=== PATIENT | female | born 2000 | race African-American/Black ===

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

== ENCOUNTER 2019-01-02 11:41 | Emergency (ER) | payer OTHER ==
[~2019-01-02] VITALS: Ht 162.6 cm; Wt 84.8 kg
[~2019-01-02 11:41] MED LIST changes: +SULF1TAB24 PO
[2019-01-02 11:53] VITALS: BP 126/66
--- NOTE | 2019-01-02 12:02 | PHYS DOC ---
Past Medical History Past Medical History: No Pertinent History Past Surgical History: No Surgical History Alcohol Use: None Drug Use: None Adult General Chief Complaint Chief Complaint: WOUND RECHECK/SUTURE REMOVAL HPI HPI Patient is a 18 year old female who presents for wound check for an abscess that was drained 2 days ago. Patient denies any issues with the wound healing. Review of Systems Review of Systems Constitutional: Denies fever or chills [] Musculoskeletal: Denies back pain or joint pain [] Integument: Visit for wound check Neurologic: Denies headache, focal weakness or sensory changes [] All other systems were reviewed and found to be within normal limits, except as documented in this note. Allergies Allergies Allergies Coded Allergies Type Severity Reaction Last Updated Verified No Known Drug Allergies 01/29/15 No Physical Exam Physical Exam Constitutional: Well developed, well nourished, no acute distress, non-toxic appearance. [] Skin: Left inner thigh with an open wound approximately 2 x 0.5 cm with packing and trace cellulitis around the area. The packing was removed. Clean nonstick dressing applied to the area Back: No tenderness, no CVA tenderness. [] Extremities: No tenderness, no cyanosis, no clubbing, ROM intact, no edema. [] Neurologic: Alert and oriented X 3, normal motor function, normal sensory function, no focal deficits noted. [] Psychologic: Affect normal, judgement normal, mood normal. [] Current Patient Data Vital Signs Vital Signs Date Time Temp Pulse Resp B/P (MAP) Pulse Ox O2 Delivery O2 Flow Rate FiO2 01/02/19 11:53 98.0 79 16 126/66 (86) 97 Room Air 98.0 EKG EKG [] Radiology/Procedures Radiology/Procedures [] Course & Med Decision Making Course & Med Decision Making Pertinent Labs and Imaging studies reviewed. (See chart for details) This is a 18-year-old female patient presenting to the ED today for wound check and packing removal for an abscess that was drained 2 days ago. Packing was removed by me, area was covered with nonstick dressing. Patient is on Bactrim which she was encouraged to continue taking until completed. Provided wound care instructions and return precautions. Dragon Disclaimer Dragon Disclaimer This electronic medical record was generated, in whole or in part, using a voice recognition dictation system. Departure Departure Impression: Primary Impression: Visit for wound check Disposition: HOME, SELF-CARE Condition: STABLE Referrals: NO PCP (PCP) Follow-up with your doctor in 1-2 weeks Patient Instructions: Wound Check Additional Instructions: We removed the packing from your wound please keep the area clean and dry, apply dressing as discussed. Continue taking antibiotics until completed. Follow-up with your doctor in 1-2 weeks. Come back to the ED didn't point wound condition worsens or you have new concerning symptoms JIM BROWN APRN January 02, 2019 12:02
== END 2019-01-02 12:12 | disposition home or self-care (01) ==
LOC: ER 11:41
DX: L03.116 Cellulitis of left lower limb (principal); Z48.01 Encounter for change or removal of surgical wound dressing
CPT/HCPCS: 99282

== ENCOUNTER 2019-03-17 11:20 | Emergency (ER) | payer OTHER ==
[~2019-03-17] VITALS: Ht 162.6 cm; Wt 86.2 kg
[2019-03-17 11:25] VITALS: BP 118/70
--- NOTE | 2019-03-17 11:52 | PHYS DOC ---
Past Medical History Past Medical History: No Pertinent History Past Surgical History: No Surgical History Alcohol Use: None Drug Use: None Adult General Chief Complaint Chief Complaint: ABSCESS HPI HPI 18-year-old female presents to ER via POV for complaints of sore on her right upper inner thigh. Patient reports she was seen in December for an abscess with similar presentation. Patient denies drainage at site. Patient denies swelling or pain in distal extremity. She denies injury. LMP 01/02/19. . She denies any vaginal bleeding or discharge, abdominal pain, nausea or vomiting, or pelvic pressure. Patient reports regular appetite denying fever or abdominal pain. Review of Systems Review of Systems Constitutional: Denies fever or chills [] Respiratory: Denies cough or shortness of breath [] Cardiovascular: No additional information not addressed in HPI [] GI: Denies abdominal pain, nausea, vomiting, bloody stools or diarrhea [] : Denies urinary sxs. Denies vaginal bleeding/discharge Musculoskeletal: Denies back pain. Reports pain at sore site rt upper/inner thigh Integument: Denies rash. Reports abscess rt inner/upper thigh with tenderness- denies drainage Neurologic: Denies headache, focal weakness or sensory changes [] Endocrine: Denies polyuria or polydipsia [] All other systems were reviewed and found to be within normal limits, except as documented in this note. Current Medications Current Medications Current Medications Medications (Trade) Dose Ordered Sig/Rosangela Start Time Stop Time Status Last Admin Dose Admin Lidocaine HCl (Xylocaine-Mpf 1% 2ml Vial) 2 ml 1X ONCE 03/17/19 12:00 03/17/19 12:01 DC 03/17/19 12:00 2 ML Allergies Allergies Allergies Coded Allergies Type Severity Reaction Last Updated Verified No Known Drug Allergies 01/29/15 No Physical Exam Physical Exam Constitutional: Well developed, well nourished, no acute distress, non-toxic appearance. [] HENT: Normocephalic, atraumatic, oropharynx moist, nose normal. [] Eyes: Pupils equal, conjunctiva normal, no discharge. [] Neck: Normal range of motion, no tenderness, supple, no stridor. [] Cardiovascular: Heart rate regular 90s during exam Lungs & Thorax: Resp. equal/nonlabored Skin: Warm, dry, no erythema, no rash. [] Back: Full ROM Extremities: No cyanosis, no clubbing, ROM intact, no edema. 2+ dorsalis pedis rt LE. Approx. 2x2 rounded sore on rt upper medial thigh- no erythema/drainage/ecchymosis- tender on palp. Induration surrounding sore with center of fluctuation. Neurologic: Alert and oriented X 3, normal motor function, normal sensory function, no focal deficits noted. [] Psychologic: Affect normal, judgement normal, mood normal. [] Current Patient Data Vital Signs Vital Signs Date Time Temp Pulse Resp B/P (MAP) Pulse Ox O2 Delivery O2 Flow Rate FiO2 03/17/19 11:25 98.4 84 16 118/70 (86) 99 Room Air 98.4 EKG EKG [] Radiology/Procedures Radiology/Procedures [] Course & Med Decision Making Course & Med Decision Making While this provider was in with another pt RN reported pt was seen exiting ER without informing staff. Patient had been agreeable for I&D but left without any procedure or prescriptions. Patient was nontoxic in appearance neurovascular intact to right lower extremity. Patient had stable vital signs and was afeb rile. Dragon Disclaimer Dragon Disclaimer This electronic medical record was generated, in whole or in part, using a voice recognition dictation system. Departure Departure Impression: Primary Impression: Abscess Disposition: 07 AGAINST MEDICAL ADVICE (eloped) Referrals: NO PCP (PCP) NANDINI BELL APRN Mar 17, 2019 11:52
[2019-03-17] MEDS ORDERED: LIDOCAINE 1% PF 2 ML VIAL. INJ ONE (12:00)
== END 2019-03-17 12:30 | disposition home or self-care (01) ==
LOC: ER 11:20
DX: L02.415 Cutaneous abscess of right lower limb (principal)
CPT/HCPCS: 96372; 99283

== ENCOUNTER 2019-04-16 18:51 | Emergency (ER) | payer OTHER ==
[~2019-04-16] VITALS: Ht 162.6 cm; Wt 89.8 kg
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
[2019-04-16 19:44] VITALS: BP 128/60
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
== END 2019-04-16 20:45 | disposition home or self-care (01) ==
LOC: ER 18:51
DX: O9A.312 Physical abuse complicating pregnancy, second trimester (principal); M54.2 Cervicalgia; R10.33 Periumbilical pain; Z3A.15 15 weeks gestation of pregnancy
CPT/HCPCS: 76815; 81025; 99284

== ENCOUNTER 2019-07-29 16:00 | Observation (INO) | payer OTHER ==
[~2019-07-29] VITALS: Ht 162.6 cm; Wt 91.6 kg
[2019-07-29 16:27] LABS: BILIRUBIN,URINE SMALL (NEG); CLARITY,URINE TURBID; COLOR,URINE AMBER; NITRITE,URINE NEGATIVE (NEG); PROTEIN,URINE 100 mg/dL (NEG-TRACE)
[2019-07-29 16:39] LABS: BACTERIA,URINE MANY /HPF (0-FEW); RBC,URINE 0 /HPF (0-2); SQUAMOUS EPITHELIAL CELL,UR MANY /LPF; WBC,URINE TNTC /HPF (0-4)
[2019-07-29] MEDS ORDERED: PANTOPRAZOLE IV PUSH 40 MG VIAL. IVP SCH (17:00)
[2019-07-29] MEDS ORDERED: METOCLOPRAMIDE HCL 10 MG/2 ML VIAL. IVP SCH (17:00)
[2019-07-29 17:11] LABS: BASO % 0 % (0-3); EOS % 0 % (0-3); HEMATOCRIT 34.9 % (36.0-47.0); HEMOGLOBIN 11.4 g/dL (12.0-15.5); LYMPH % 7 % (24-48); MEAN CORPUSCULAR HEMOGLOBIN 26 pg (25-35); MEAN CORPUSCULAR HGB CONC 33 g/dL (31-37); MEAN CORPUSCULAR VOLUME 78 fL (79-100); MONO % 7 % (0-9); NEUT # 12.1 x10^3/uL (1.8-7.7); NEUT % 86 % (31-73); PLATELET COUNT 283 x10^3/uL (140-400); RED BLOOD COUNT 4.48 x10^6/uL (3.50-5.40); RED CELL DISTRIBUTION WIDTH 15.1 % (11.5-14.5); WHITE BLOOD COUNT 14.1 x10^3/uL (4.0-11.0)
[2019-07-29] MEDS: IV RINGERS,LACTATED 1000ML 1,000 ML IV SCH ×2 (17:12→18:00)
[2019-07-29 17:33] LABS: CALCIUM 8.8 mg/dL (8.5-10.1); CREATININE 0.5 mg/dL (0.6-1.0); GFR 192.3; POTASSIUM 3.9 mmol/L (3.5-5.1)
[2019-07-29 17:40] LABS: ALBUMIN 2.8 g/dL (3.4-5.0); ALBUMIN/GLOBULIN RATIO 0.6 (1.0-1.7); TOTAL BILIRUBIN 0.2 mg/dL (0.2-1.0); TOTAL PROTEIN 7.4 g/dL (6.4-8.2)
[2019-07-29] MEDS ORDERED: ONDANSETRON PF 4 MG/2 ML VIAL. IV SCH (18:00)
[2019-07-29 18:34] LABS: % EOS 1 % (0-5); % LYMPHS 3 % (24-48); % MONOS 5 % (0-10); % SEGS 91 % (35-66); PLT ESTIMATE ADEQUATE (ADEQUATE)
[2019-07-29 18:35] LABS: SMUDGE CELLS PRESENT
== END 2019-07-29 20:10 | disposition home or self-care (01) ==
LOC: 3 SO LND 16:00
PROVIDERS: ADMIT Obstetrics & Gynecology; ATTEND Obstetrics & Gynecology
DX: O21.2 Late vomiting of pregnancy (principal); O26.893 Other specified pregnancy related conditions, third trimester; R10.9 Unspecified abdominal pain; Z3A.29 29 weeks gestation of pregnancy
CPT/HCPCS: 36415; 80053; 81001; 85007; 85025; 87086; 96361; 96374; 96375; C9113; G0378; G0379; J2405; J2765; J7120

== ENCOUNTER 2019-09-16 10:40 | Observation (INO) | payer OTHER ==
[~2019-09-16] VITALS: Ht 162.6 cm; Wt 94.8 kg
[2019-09-16 11:33] LABS: BILIRUBIN,URINE NEGATIVE (NEG); CLARITY,URINE CLOUDY; COLOR,URINE YELLOW; NITRITE,URINE NEGATIVE (NEG); PH,URINE 6.5; PROTEIN,URINE NEGATIVE (NEG-TRACE)
[2019-09-16 11:44] LABS: BACTERIA,URINE FEW /HPF (0-FEW); SQUAMOUS EPITHELIAL CELL,UR MANY /LPF; WBC,URINE >40 /HPF (0-4)
== END 2019-09-16 12:35 | disposition home or self-care (01) ==
LOC: 3 SO LND 10:40
PROVIDERS: ADMIT Obstetrics & Gynecology; ATTEND Obstetrics & Gynecology
DX: O62.9 Abnormality of forces of labor, unspecified (principal); Z3A.36 36 weeks gestation of pregnancy
CPT/HCPCS: 81001; 87086; G0378; G0379

== ENCOUNTER 2019-10-02 05:37 | Inpatient (IN) | payer OTHER ==
[~2019-10-02] VITALS: Ht 162.6 cm; Wt 94.8 kg
[2019-10-02] MEDS ORDERED: LIDOCAINE 1% PF 30 ML VIAL. INJ PRN (05:45)
[2019-10-02] MEDS ORDERED: ONDANSETRON PF 4 MG/2 ML VIAL. IV PRN (05:45)
[2019-10-02] MEDS ORDERED: fentaNYL PF VIAL 100 MCG/2 ML VIAL IV PRN ×2 (05:45)
[2019-10-02] MEDS ORDERED: BUTORPHANOL 2 MG/ML VIAL. IV PRN ×2 (05:45)
[2019-10-02] MEDS ORDERED: OXYTOCIN 30 UNIT/500 ML PREMIX 500 ML IV PRN ×3 (05:45→12:30)
[2019-10-02] MEDS ORDERED: TERBUTALINE 1 MG/ML VIAL. SQ PRN (05:45)
[2019-10-02] MEDS ORDERED: diphenhydrAMINE HCL 25 MG CAPSULE PO PRN ×2 (05:45→12:30)
[2019-10-02] MEDS ORDERED: ACETAMINOPHEN 325 MG TABLET. PO PRN ×2 (05:45→12:30)
[2019-10-02] MEDS ORDERED: IBUPROFEN 400 MG TABLET. PO PRN (05:45)
[2019-10-02] MEDS ORDERED: 0.9 % SODIUM CHLORIDE 10 ML DISP.SYRIN. IV PRN ×2 (05:45→12:30)
[2019-10-02] MEDS: IV RINGERS,LACTATED 1000ML 1,000 ML IV SCH ×3 (06:19→22:00)
[2019-10-02 06:45] LABS: BILIRUBIN,URINE SMALL (NEG); CLARITY,URINE CLEAR; COLOR,URINE AMBER; NITRITE,URINE NEGATIVE (NEG); PROTEIN,URINE 30 mg/dL (NEG-TRACE)
[2019-10-02 06:46] LABS: BASO % 0 % (0-3); EOS % 0 % (0-3); HEMATOCRIT 32.3 % (36.0-47.0); HEMOGLOBIN 10.4 g/dL (12.0-15.5); LYMPH # 2.1 x10^3/uL (1.0-4.8); LYMPH % 22 % (24-48); MEAN CORPUSCULAR HEMOGLOBIN 24 pg (25-35); MEAN CORPUSCULAR HGB CONC 32 g/dL (31-37); MEAN CORPUSCULAR VOLUME 74 fL (79-100); MONO # 0.9 x10^3/uL (0.0-1.1); MONO % 10 % (0-9); NEUT # 6.8 x10^3/uL (1.8-7.7); NEUT % 69 % (31-73); PLATELET COUNT 291 x10^3/uL (140-400); RED BLOOD COUNT 4.38 x10^6/uL (3.50-5.40); RED CELL DISTRIBUTION WIDTH 16.1 % (11.5-14.5); WHITE BLOOD COUNT 9.9 x10^3/uL (4.0-11.0)
[2019-10-02] MEDS ORDERED: OXYTOCIN PREMIX 30 UNIT/500 ML NS BAG. IV ONE (07:30)
[2019-10-02 07:32] LABS: BACTERIA,URINE FEW /HPF (0-FEW); RBC,URINE OCC /HPF (0-2); SQUAMOUS EPITHELIAL CELL,UR FEW /LPF
--- NOTE | 2019-10-02 09:19 | PDOC1 ---
OB - History Hx of Present Care: Good Care Ultrasounds: Normal mid trimester US Obstetrical Complications: None Medical Complications: None Past Family/Social History * Past Medical, Surgical, Family and Obstetric Histories reviewed from chart. Blood Type: Unknown Rubella: Immune RPR/VDRL: Negative GBS Status: Negative HBsAG: Negative OB - Chief Complaint & HPI Date of Admission: Date of Admission: Oct 02, 2019 at 05:37 Chief Complaint/History : 3 Para: 2 EGA: 39 Reason for admission: induction of labor Indication for induction: maternal discomfort Admission Nurse Assessment Rev: Yes OB - Admission Exam Physical Exam HEENT: Normal Heart: Regular Rate Lungs: Clear, Equal Abdomen: Gravid, Non tender, Soft Extremities: Edema Reflexes: Normal Cervical Dilatation: 3cm Effacement: 50% Station: -3 Amniotic Fluid: Clear Heart Rate: Normal Accelerations: Accelerations Present Decelerations: No decelerations Short Term Variability: Present Contractions on Admission: 6-10 Minutes Apart Intensity: Mild Text A: 39 wks IUP IOL secondary discomforts P: Admit for pitocin induction. LULÚ COPELAND Jr, MD Oct 02, 2019 09:19
[2019-10-02] MEDS ORDERED: BUPIVACAINE MPF 0.25% 30 ML VIAL. ONE (10:50)
[2019-10-02] MEDS ORDERED: L&D EPIDURAL SYRINGE 50 ML ONE (10:51)
[2019-10-02] MEDS ORDERED: L&D EPIDURAL 50 ML SYRINGE. ONE (11:00)
[2019-10-02] MEDS ORDERED: IV RINGERS,LACTATED 1000ML 1,000 ML IV SCH (11:16)
[2019-10-02] MEDS ORDERED: diphenhydrAMINE 50 MG/ML VIAL IV PRN (11:30)
[2019-10-02] MEDS ORDERED: ONDANSETRON PF 4 MG/2 ML VIAL. IVP PRN (11:30)
[2019-10-02] MEDS ORDERED: ATROPINE 0.5 MG/5 ML DISP.SYRINGE. IV PRN (11:30)
[2019-10-02] MEDS ORDERED: fentaNYL PF VIAL 100 MCG/2 ML VIAL EPID PRN (11:30)
[2019-10-02] MEDS ORDERED: IV RINGERS,LACTATED 500ML 500 ML IV PRN (11:30)
[2019-10-02] MEDS ORDERED: ePHEDrine PF IN SALINE 50 MG/10 ML SYRINGE. IV PRN (11:30)
[2019-10-02] MEDS ORDERED: NALOXONE 0.4 MG/ML VIAL. IV PRN (11:30)
[2019-10-02] MEDS ORDERED: ROPIVacaine 0.2% PF 10 ML VIAL. EPID PRN (11:30)
[2019-10-02] MEDS ORDERED: L&D EPIDURAL SYRINGE 50 ML EPID PRN (11:30)
[2019-10-02] MEDS ORDERED: PROCHLORPERAZINE 10 MG/2 ML VIAL. IV PRN (11:30)
[2019-10-02] MEDS ORDERED: BUPIVACAINE MPF 0.25% 30 ML VIAL. EPID PRN (11:30)
[2019-10-02] MEDS ORDERED: PHENYLEPHRINE in 0.9% NACL PF 1 MG/10 ML SYRINGE. IV PRN (11:30)
--- NOTE | 2019-10-02 12:17 | PDOC ---
VAGINAL DELIVERY DATE DATE: 10/02/19 TIME: 12:15 : 2 Para: 2 EGA: 39 VAGINAL DELIVERY: VTX VACCUM ASSISTED: No PLACENTA: Spontaneous 6/9 SEX: Male WEIGHT Weight [ 7 lbs. 3 oz] Nuchal Cord: Yes, Times 1 Amniotic Fluid: Clear PAIN: Epidural EPISIOTOMY: No EXTENSION: No EBL 300 ml COMPLICATIONS none CONDITION pt. stable Signs of Intrauterine Infectio: None Shoulder Dystocia: No LULÚ COPELAND Jr, MD Oct 02, 2019 12:17
[2019-10-02] MEDS ORDERED: MAG HYDROX/ALUMINUM HYD/SIMETH 30 ML ORAL.SUSP PO PRN (12:30)
[2019-10-02] MEDS ORDERED: MMR per PROTOCOL. MC PRN (12:30)
[2019-10-02] MEDS ORDERED: HYDROCORTISONE 1% TOPICAL OINTMENT 30GM TUBE. TP PRN (12:30)
[2019-10-02] MEDS ORDERED: ZOLPIDEM 5 MG TABLET. PO PRN (12:30)
[2019-10-02] MEDS ORDERED: PHENYLEPH/MINERAL OIL/PETROLAT RECTAL OINTMENT TUBE. RC PRN (12:30)
[2019-10-02] MEDS ORDERED: SIMETHICONE 80 MG TAB.CHEW PO PRN (12:30)
[2019-10-02] MEDS ORDERED: BENZOCAINE 20% TOPICAL AEROSOL SPRAY 57GM CAN. TP PRN (12:30)
[2019-10-02] MEDS ORDERED: MAGNESIUM HYDROXIDE 2,400 MG/30 ML ORAL.SUSP. PO PRN (12:30)
[2019-10-02 15:00] VITALS: BP 112/59
[2019-10-02 16:00] VITALS: BP 116/69
[2019-10-02] MEDS: FERROUS SULFATE 325 MG TABLET. PO SCH (20:50)
[2019-10-02] MEDS: IBUPROFEN 400 MG TABLET. PO PRN (22:28)
[2019-10-02 22:30] VITALS: BP 108/64
[2019-10-02] MEDS: oxyCODONE/APAP 5/325 1 TAB TABLET PO PRN (22:41)
[2019-10-03 04:00] VITALS: BP 118/59
[2019-10-03] MEDS: IV RINGERS,LACTATED 1000ML 1,000 ML IV SCH (06:00)
[2019-10-03 06:02] LABS: BASO % 0 % (0-3); EOS % 1 % (0-3); HEMATOCRIT 29.4 % (36.0-47.0); HEMOGLOBIN 9.6 g/dL (12.0-15.5); LYMPH # 2.5 x10^3/uL (1.0-4.8); LYMPH % 27 % (24-48); MEAN CORPUSCULAR HEMOGLOBIN 24 pg (25-35); MEAN CORPUSCULAR HGB CONC 33 g/dL (31-37); MEAN CORPUSCULAR VOLUME 74 fL (79-100); MONO # 0.9 x10^3/uL (0.0-1.1); MONO % 10 % (0-9); NEUT # 5.9 x10^3/uL (1.8-7.7); NEUT % 63 % (31-73); PLATELET COUNT 238 x10^3/uL (140-400); RED BLOOD COUNT 3.99 x10^6/uL (3.50-5.40); RED CELL DISTRIBUTION WIDTH 16.2 % (11.5-14.5); WHITE BLOOD COUNT 9.4 x10^3/uL (4.0-11.0)
[2019-10-03 06:27] VITALS: BP 103/51
[2019-10-03] MEDS: DOCUSATE SODIUM 100 MG CAPSULE. PO PRN (07:49)
[2019-10-03] MEDS: FERROUS SULFATE 325 MG TABLET. PO SCH ×2 (07:49→20:14)
[2019-10-03] MEDS: oxyCODONE/APAP 5/325 1 TAB TABLET PO PRN ×2 (07:50→15:13)
--- NOTE | 2019-10-03 11:09 | PDOC ---
OB Progress Note Date of Service 10/03/19 Time of Evaluation 1100 Notes Pt. feeling well. No complaints. Lab Laboratory Tests Test 10/02/19 06:12 10/03/19 05:35 White Blood Count 9.9 x10^3/uL (4.0-11.0) 9.4 x10^3/uL (4.0-11.0) Red Blood Count 4.38 x10^6/uL (3.50-5.40) 3.99 x10^6/uL (3.50-5.40) Hemoglobin 10.4 g/dL (12.0-15.5) 9.6 g/dL (12.0-15.5) Hematocrit 32.3 % (36.0-47.0) 29.4 % (36.0-47.0) Mean Corpuscular Volume 74 fL (79-100) 74 fL (79-100) Mean Corpuscular Hemoglobin 24 pg (25-35) 24 pg (25-35) Mean Corpuscular Hemoglobin Concent 32 g/dL (31-37) 33 g/dL (31-37) Red Cell Distribution Width 16.1 % (11.5-14.5) 16.2 % (11.5-14.5) Platelet Count 291 x10^3/uL (140-400) 238 x10^3/uL (140-400) Neutrophils (%) (Auto) 69 % (31-73) 63 % (31-73) Lymphocytes (%) (Auto) 22 % (24-48) 27 % (24-48) Monocytes (%) (Auto) 10 % (0-9) 10 % (0-9) Eosinophils (%) (Auto) 0 % (0-3) 1 % (0-3) Basophils (%) (Auto) 0 % (0-3) 0 % (0-3) Neutrophils # (Auto) 6.8 x10^3/uL (1.8-7.7) 5.9 x10^3/uL (1.8-7.7) Lymphocytes # (Auto) 2.1 x10^3/uL (1.0-4.8) 2.5 x10^3/uL (1.0-4.8) Monocytes # (Auto) 0.9 x10^3/uL (0.0-1.1) 0.9 x10^3/uL (0.0-1.1) Eosinophils # (Auto) 0.0 x10^3/uL (0.0-0.7) 0.0 x10^3/uL (0.0-0.7) Basophils # (Auto) 0.0 x10^3/uL (0.0-0.2) 0.0 x10^3/uL (0.0-0.2) Urine Collection Type Unknown Urine Color Yolanda Urine Clarity Clear Urine pH 7.0 Urine Specific [place] >=1.030 Urine Protein 30 mg/dL (NEG-TRACE) Urine Glucose (UA) Negative mg/dL (NEG) Urine Ketones (Stick) Negative mg/dL (NEG) Urine Blood Negative (NEG) Urine Nitrite Negative (NEG) Urine Bilirubin Small (NEG) Urine Urobilinogen Dipstick 1.0 mg/dL (0.2 mg/dL) Urine Leukocyte Esterase Moderate (NEG) Urine RBC Occ /HPF (0-2) Urine WBC 1-4 /HPF (0-4) Urine Squamous Epithelial Cells Few /LPF Urine Bacteria Few /HPF (0-FEW) Urine Mucus Slight /LPF Treponema pallidum Antibody Nonreactive (Nonreactive) Laboratory Tests Test 10/03/19 05:35 White Blood Count 9.4 x10^3/uL (4.0-11.0) Red Blood Count 3.99 x10^6/uL (3.50-5.40) Hemoglobin 9.6 g/dL (12.0-15.5) Hematocrit 29.4 % (36.0-47.0) Mean Corpuscular Volume 74 fL (79-100) Mean Corpuscular Hemoglobin 24 pg (25-35) Mean Corpuscular Hemoglobin Concent 33 g/dL (31-37) Red Cell Distribution Width 16.2 % (11.5-14.5) Platelet Count 238 x10^3/uL (140-400) Neutrophils (%) (Auto) 63 % (31-73) Lymphocytes (%) (Auto) 27 % (24-48) Monocytes (%) (Auto) 10 % (0-9) Eosinophils (%) (Auto) 1 % (0-3) Basophils (%) (Auto) 0 % (0-3) Neutrophils # (Auto) 5.9 x10^3/uL (1.8-7.7) Lymphocytes # (Auto) 2.5 x10^3/uL (1.0-4.8) Monocytes # (Auto) 0.9 x10^3/uL (0.0-1.1) Eosinophils # (Auto) 0.0 x10^3/uL (0.0-0.7) Basophils # (Auto) 0.0 x10^3/uL (0.0-0.2) Medications Current Medications Sodium Chloride (Normal Saline Flush) 3 ml QSHIFT PRN IV AFTER MEDS AND BLOOD DRAWS; Start 10/02/19 at 05:45 Ringer's Solution 1,000 ml @ 125 mls/hr Q8H IV Last administered on 10/02/19at 10:46; Start 10/02/19 at 06:00 Butorphanol Tartrate (Stadol) 1 mg PRN Q1HR PRN IV mild to moderate labor pain; Start 10/02/19 at 05:45 Butorphanol Tartrate (Stadol) 2 mg PRN Q1HR PRN IV Severe labor pain; Start 10/02/19 at 05:45 Fentanyl Citrate (Fentanyl 2ml Vial) 50 mcg PRN Q30MIN PRN IV Mild to moderate pain; Start 10/02/19 at 05:45 Fentanyl Citrate (Fentanyl 2ml Vial) 100 mcg PRN Q30MIN PRN IV Severe pain; Start 10/02/19 at 05:45 Acetaminophen (Tylenol) 650 mg PRN Q6HRS PRN PO MILD PAIN / TEMP; Start 10/02/19 at 05:45 Ondansetron HCl (Zofran) 4 mg PRN Q4HRS PRN IV NAUSEA/VOMITING 1ST CHOICE; Start 10/02/19 at 05:45 Terbutaline Sulfate (Brethine) 0.25 mg 1X PRN PRN SQ SEE COMMENTS; Start 10/02/19 at 05:45; Stop 10/03/19 at 05:44; Status DC Lidocaine HCl (Xylocaine 1% Pf 30ml Vial) 30 ml 1X PRN PRN INJ SEE COMMENTS; Start 10/02/19 at 05:45; Stop 10/04/19 at 05:44 Oxytocin/Sodium Chloride 500 ml @ 0 mls/hr CONT PRN IV SEE I/O RECORD; Start 10/02/19 at 05:45 Oxytocin/Sodium Chloride 500 ml @ 0 mls/hr CONT PRN PRN IV Post delivery bleeding; Start 10/02/19 at 05:45 Ibuprofen (Motrin) 800 mg PRN Q6HRS PRN PO MODERATE PAIN 4-6 Last administered on 10/03/19at 07:49; Start 10/02/19 at 05:45 Diphenhydramine HCl (Benadryl) 25 mg PRN QHS PRN PO INSOMNIA; Start 10/02/19 at 05:45 Bupivacaine HCl (Sensorcaine Mpf 0.25%) 30 ml STK-MED ONCE .ROUTE ; Start 10/02/19 at 10:50; Stop 10/02/19 at 10:51; Status DC Fentanyl Citrate 50 ml @ As Directed STK-MED ONCE .ROUTE ; Start 10/02/19 at 10:51; Stop 10/02/19 at 10:51; Status DC Ringer's Solution 1,000 ml @ 1,000 mls/hr Q1H IV ; Start 10/02/19 at 11:16; Stop 10/02/19 at 12:15; Status DC Ringer's Solution 500 ml @ 500 mls/hr 1X PRN PRN IV HYPOTENSION; Start 10/02/19 at 11:30; Stop 10/03/19 at 11:29 Ephedrine Sulfate (ePHEDrine PF IN SALINE SYRINGE) 10 mg PRN Q2MIN PRN IV IF SBP<90; Start 10/02/19 at 11:30 Phenylephrine HCl (PHENYLEPHRINE in 0.9% NACL PF) 0.05 mg PRN Q2MIN PRN IV SBP less than 90; Start 10/02/19 at 11:30 Atropine Sulfate (ATROPINE 0.5mg SYRINGE) 0.4 mg PRN Q2MIN PRN IV FOR SYMPTOMATIC BRADYCARDIA; Start 10/02/19 at 11:30 Naloxone HCl (Narcan) 0.04 mg PRN Q1MIN PRN IV SEE COMMENTS; Start 10/02/19 at 11:30 Fentanyl Citrate (Fentanyl 2ml Vial) 100 mcg PRN 1X PRN EPID FOR ANESTHESIA; Start 10/02/19 at 11:30; Stop 10/03/19 at 11:29 Bupivacaine HCl (Sensorcaine Mpf 0.25%) 10 ml PRN 1X PRN EPID FOR ANESTHESIA; Start 10/02/19 at 11:30; Stop 10/03/19 at 11:29 Fentanyl Citrate 50 ml @ 14 mls/hr CONT PRN EPID PAIN; Start 10/02/19 at 11:30 Ondansetron HCl (Zofran) 4 mg PRN Q6HRS PRN IVP NAUSEA/VOMITING; Start 10/02/19 at 11:30 Prochlorperazine Edisylate (Compazine) 5 mg PRN Q6HRS PRN IV NAUSEA/VOMITING; Start 10/02/19 at 11:30 Diphenhydramine HCl (Benadryl) 12.5 mg PRN Q2HR PRN IV ITCHING; Start 10/02/19 at 11:30 Ropivacaine (Naropin 0.2%) 20 ml 1X PRN PRN EPID PER ANESTHESIA; Start 10/02/19 at 11:30 Oxytocin/Sodium Chloride (Oxytocin Premix Infusion) 30 unit STK-MED ONCE IV ; Start 10/02/19 at 07:30; Stop 10/02/19 at 11:39; Status DC Sodium Chloride (Normal Saline Flush) 10 ml QSHIFT PRN IV AFTER MEDS AND BLOOD DRAWS; Start 10/02/19 at 12:30 Oxytocin/Sodium Chloride 500 ml @ 62.5 mls/hr CONT PRN IV SEE I/O RECORD; Start 10/02/19 at 12:30; Stop 10/02/19 at 20:29; Status DC Acetaminophen (Tylenol) 650 mg PRN Q6HRS PRN PO MILD PAIN / TEMP; Start 10/02/19 at 12:30 Ibuprofen (Motrin) 800 mg PRN Q8HRS PRN PO INFLAMMATION/PAIN PREVENTION Last administered on 10/02/19at 22:28; Start 10/02/19 at 12:30 Docusate Sodium (Colace) 100 mg PRN BID PRN PO CONSTIPATION Last administered on 10/03/19at 07:49; Start 10/02/19 at 12:30 Magnesium Hydroxide (Milk Of Magnesia) 2,400 mg PRN DAILY PRN PO CONSTIPATION; Start 10/02/19 at 12:30 Al Hydroxide/Mg Hydroxide (Mylanta Plus Xs) 30 ml PRN Q4HRS PRN PO HEARTBURN / GAS; Start 10/02/19 at 12:30 Simethicone (Gas-X) 80 mg PRN AFTMEALHC PRN PO GAS / BLOATING; Start 10/02/19 at 12:30 Diphenhydramine HCl (Benadryl) 25 mg PRN Q6HRS PRN PO ITCHING; Start 10/02/19 at 12:30 Benzocaine (Americaine) 1 spray PRN QID PRN TP TOPICAL PAIN; Start 10/02/19 at 12:30 Phenyleph/Shark Oil/Min Oil/Petrol (Preparation H) 1 jonathan PRN QID PRN RC RECTAL PAIN; Start 10/02/19 at 12:30 Hydrocortisone (Cortaid) 1 jonathan PRN QID PRN TP PERINEAL PAIN; Start 10/02/19 at 12:30 Ferrous Sulfate (Feosol) 325 mg BIDWMEALS PO Last administered on 10/03/19at 07:49; Start 10/02/19 at 17:00 Zolpidem Tartrate (Ambien) 5 mg PRN QHS PRN PO INSOMNIA, MAY REPEAT X1; Start 10/02/19 at 12:30 Info (Do NOT chart on this placeholder) 1 ea 1X PRN PRN MC SEE COMMENTS; Start 10/02/19 at 12:30 Info (Do NOT chart on this placeholder) 1 ea 1X PRN PRN MC SEE COMMENTS; Start 10/02/19 at 12:30 Oxycodone/ Acetaminophen (Percocet 5/325) 2 tab PRN Q4HRS PRN PO MODERATE PAIN, SEVERE PAIN Last administered on 10/03/19at 07:50; Start 10/02/19 at 12:30 Active Scripts Active [place] 5-325 Tablet (Acetaminophen/Hydrocodone Bitart) 1 Each Tablet 1 Tab PO PRN Q6HRS PRN Bactrim Ds Tablet (Sulfamethoxazole/Trimethoprim) 1 Each Tablet 1 Tab PO BID [place] 5-325 Tablet (Acetaminophen/Hydrocodone Bitart) 1 Each Tablet 1-2 Each PO PRN Q6HRS PRN as needed for pain Amoxicillin 500 Mg Tablet 1 Tab PO TID Flagyl (Metronidazole) 500 Mg Tablet 1 Tab PO BID Zofran Odt (Ondansetron) 4 Mg Tab.rapdis 1 Tab SL Q8HRS Exam ABd: soft, non tender, fundus firm Assessment PPD#1 s/p Plan of Care: Continue current Tx, Mgmt PEGHEE,LULÚ G Jr MD Oct 03, 2019 11:09
[2019-10-03 11:30] VITALS: BP 114/65
[2019-10-03] MEDS: IBUPROFEN 400 MG TABLET. PO PRN (15:13)
[2019-10-03 16:25] VITALS: BP 110/70
[2019-10-03 20:30] VITALS: BP 120/58
[2019-10-04] MEDS: oxyCODONE/APAP 5/325 1 TAB TABLET PO PRN ×2 (02:21→08:13)
[2019-10-04] MEDS: IBUPROFEN 400 MG TABLET. PO PRN ×2 (02:22→14:30)
[2019-10-04 04:59] VITALS: BP 112/68
[2019-10-04 08:00] VITALS: BP 114/61
[2019-10-04] MEDS: DOCUSATE SODIUM 100 MG CAPSULE. PO PRN (08:03)
[2019-10-04] MEDS: FERROUS SULFATE 325 MG TABLET. PO SCH (08:03)
--- NOTE | 2019-10-04 08:06 | PDOC3 ---
OB DISCHARGE SUMMARY DATE OF ADMISSION: 10/02/19 DATE OF DISCHARGE: 10/04/19 REASON FOR ADMISSION: Induction of labor INTRAPARTUM PROCEDURES: Spontanous Vag Deliv DISCHARGE DIAGNOSIS: Term Delivered DISCHARGE INFORMATION: Activity (ad madelyn), Diet (regular), Instructions (pelvic rest x 6 wks) HOSPITAL COURSE Term gestation delivered vaginally without complications. LULÚ COPELAND Jr, MD Oct 04, 2019 08:06
[2019-10-04] MEDS ORDERED: IBUP-1027 PO (08:08)
--- NOTE | 2019-10-04 08:08 | DISCH ---
DISCHARGE INSTRUCTIONS Condition on Discharge Condition on Discharge: Stable Activity After Discharge Activity Instructions for Disc: Activity as tolerated Lifting Instructions after Dis: No heavy lifting Driving Instructions after Dis: Do not drive today Diet after Discharge Diet after Discharge: Regular Contacting the DRKatia after DC Call your doctor for: Concerns you may have Follow-Up Follow up with: Dr. Diaz in 6 wks LULÚ DIAZ Jr, MD Oct 04, 2019 08:08
[2019-10-04 14:30] VITALS: BP 122/81
--- NOTE | 2019-10-04 14:50 | NUR ---
Discharge Note: ANATOLIY MCKEON Discharge instructions and discharge home medications reviewed with Patient and a copy given. All questions have been answered and understanding verbalized. The following instructions and handouts were given: Care After Vaginal Delivery Patient discharged to home with self-care via ambulation to private vehicle. Follow up appointments reviewed and understanding verbalized.
== END 2019-10-04 14:50 | disposition home or self-care (01) | DRG 807 ==
LOC: 3 SO LND 05:37 → 3 NORTH 15:00
PROVIDERS: ADMIT Obstetrics & Gynecology; ATTEND Obstetrics & Gynecology
PROC: 10E0XZZ Delivery of Products of Conception, External Approach (ICD-10-PCS; principal; 2019-10-02)
PROC: 3E0R3BZ Introduction of Anesthetic Agent into Spinal Canal, Percutaneous Approach (ICD-10-PCS; 2019-10-02)
PROC: 00HU33Z Insertion of Infusion Device into Spinal Canal, Percutaneous Approach (ICD-10-PCS; 2019-10-02)
DX: O69.81X0 Labor and delivery complicated by cord around neck, without compression, not applicable or unspecified (principal); Z37.0 Single live birth; Z3A.39 39 weeks gestation of pregnancy
CPT/HCPCS: 36415; 81001; 85025; 86592; 86850; 86900; 86901; 87086; J2590; J7120; G0378

== ENCOUNTER → 2020-08-25 | Outpatient (CLI) | payer OTHER ==
[~2020-08-25] MED LIST changes: +IBUP-1027 PO
== END ==
LOC: LAB 11:33
PROVIDERS: ATTEND Obstetrics & Gynecology
DX: N91.1 Secondary amenorrhea (principal)
CPT/HCPCS: 36415; 84702